=== PATIENT | male | born 1955 | race Caucasian/White ===

== ENCOUNTER 2021-03-11 07:19 | Emergency (ER) | payer MEDICARE, OTHER ==
[2021-03-11] MEDS ORDERED: Sodium Chloride 0.9% 10 ML Syringe FLUSH PRN (07:47)
[2021-03-11] MEDS ORDERED: Diltiazem 50 MG/10 ML SDV IVPUSH ONE (07:49)
[2021-03-11] MEDS ORDERED: Ondansetron 4 MG/2 ML SDV IVPUSH ONE (07:51)
[2021-03-11] MEDS ORDERED: Sodium Chloride 0.9% 1,000 ML IV SCH (08:00)
== END 2021-03-11 09:40 | disposition home or self-care (01) ==
LOC: JD.ED 07:19
DX: R11.2 Nausea with vomiting, unspecified (principal); I48.20 Chronic atrial fibrillation, unspecified; R51.9 Headache, unspecified; E11.9 Type 2 diabetes mellitus without complications; E78.00 Pure hypercholesterolemia, unspecified; I10 Essential (primary) hypertension; Z79.4 Long term (current) use of insulin; Z79.899 Other long term (current) drug therapy; Z79.01 Long term (current) use of anticoagulants
CPT/HCPCS: 36415; 70450; 80053; 85025; 85610; 96374; 96375; 99284; J2405; J3490; J7030